=== PATIENT | female | born 1940 | race Hispanic/Latino ===

== ENCOUNTER 2017-06-07 06:50 | Day surgery (SDC) | payer MEDICARE ==
[2017-06-07 07:58] LABS: INR 1.2; PROTHROMBIN TIME 12.9 SECONDS (9.7-12.2)
[2017-06-07] MEDS ORDERED: Propofol 10 mg/ml Inj (20 ML) ONE (08:50)
[2017-06-07] MEDS ORDERED: Lactated Ringer's 1,000 ML IV ONE (08:50)
--- NOTE | 2017-06-07 08:53 | CP.SDSHP ---
Same Day Surgery H & P - History Proposed Procedure: colonscopy Pre-Op Diagnosis: SEE NOTES - Previous Medical/Surgical History Cardiac: Hypertension, ASHD/CAD Endocrine/Metabolic: Other Misc: Other Pain: 4.Moderate Pain - Allergies Allergies: Allergies No Known Allergies Allergy (Verified 06/07/17 07:17) - Physical Exam General Appearance: N Vital Signs: Vital Signs 06/07/17 07:05 Temperature 97.7 F Pulse Rate 64 Respiratory 16 Rate Blood Pressure 117/48 L O2 Sat by Pulse 100 Oximetry Mental Status: Alert & Oriented x3 Neuro: WNL Heart: Other Lungs: WNL GI: Other - {Optional Preform as Required} Breast: WNL Abdomen: Other Rectal: Other Integument: WNL : WNL Ortho: Other ENT: WNL - Impression Pt. Evaluated Today:Candidate for Anesthesia & Procedure: Yes - Date & Time Time: 08:54 Short Stay Discharge - Short Stay Discharge Admitting Diagnosis/Reason for Visit: HEMORRHAGE OF ANUS AND RECTUM Disposition: HOME/ ROUTINE
[2017-06-07] MEDS ORDERED: Pantoprazole 40 mg EC Tab PO ONE (09:30)
[2017-06-07] MEDS ORDERED: Belladonna-Phenobarbital PO ONE (09:35)
[2017-06-07 09:49] VITALS: TEMP 97
[2017-06-07 10:44] VITALS: BP 149/62; PULSE 63; RESP 15; O2SAT 99
== END 2017-06-07 10:45 | disposition home or self-care (01) ==
LOC: C.ENDO 06:50
PROVIDERS: ATTEND Specialist
DX: K62.5 Hemorrhage of anus and rectum (principal); K64.4 Residual hemorrhoidal skin tags; K64.8 Other hemorrhoids; I10 Essential (primary) hypertension; I25.10 Atherosclerotic heart disease of native coronary artery without angina pectoris; K52.9 Noninfective gastroenteritis and colitis, unspecified
CPT/HCPCS: 36415; 45380; 85610; 85730; 88305; J2704; J7120